=== PATIENT | male | born 1980 | race Caucasian/White ===

== ENCOUNTER 2016-07-04 22:13 | Emergency (ER) | payer MEDICAID, OTHER ==
[2016-07-04 22:26] VITALS: RESP 16; TEMP 98.6; O2SAT 95
--- NOTE | 2016-07-04 23:13 | EDPHY ---
H & P Stated Complaint: Umbilical Surgical site-[facility]-oother complaint. Time Seen by Provider: 07/04/16 23:12 HPI/ROS: CHIEF COMPLAINT: surgical wound check HISTORY OF PRESENT ILLNESS: 36-year-old male presents emergency department for a wound check from his umbilical hernia surgery done [address] [facility]. Patient reports redness. He denies pain, no fevers or chills, no nausea or vomiting. Source: Patient Exam Limitations: No limitations - Personal History Current Tetanus/Diphtheria Vaccine: Unsure Current Tetanus Diphtheria and Acellular Pertussis (TDAP): Unsure - Medical/Surgical History Hx Asthma: No Hx Chronic Respiratory Disease: No Hx Diabetes: No Hx Cardiac Disease: No Hx Renal Disease: No Hx Cirrhosis: No Hx Alcoholism: Yes Hx HIV/AIDS: No Hx Splenectomy or Spleen Trauma: No Other PMH: bipolar. Umbilical hernia Jun 2016 - Social History Smoking Status: Heavy smoker - Physical Exam Exam: GEN: Awake, alert, oriented, no acute distress RESP: nl resp effort MSK: Normal appearing SKIN: 3 cm surgical wound healing well, no drainage, left sided incision with small amount of erythema with swelling with clear suture poking out, no surrounding erythema Constitutional: Initial Vital Signs Temperature (C) 37.0 C 07/04/16 22:19 Heart Rate 95 07/04/16 22:19 Respiratory Rate 16 07/04/16 22:19 O2 Sat (%) 95 07/04/16 22:19 O2 Delivery Mode Room Air Allergies/Adverse Reactions: No Known Allergies Allergy (Verified 07/04/16 22:24) Home Medications: Medication Instructions Recorded Maliritu 07/04/16 Medical Decision Making ED Course/Re-evaluation: Suture removed from left side of incision without difficulty, no drainage. Departure - Departure Disposition: Home, Routine, Self-Care Clinical Impression: Visit for wound check Retained suture Qualifiers: Encounter type: initial encounter Qualifier Code: (T81.89XA) Other complications of procedures, not elsewhere classified, initial encounter Condition: Good Instructions: Acute Wound Care (ED) Additional Instructions: Follow-up with your surgeon as scheduled this week, return to the emergency department for increased redness, swelling, drainage, fevers or chills. Referrals: Gavin Magallon DO [Primary Care Provider] - As per Instructions
[2016-07-04 23:31] VITALS: BP 130/75; PULSE 88
== END 2016-07-05 00:03 | disposition home or self-care (01) ==
DX: T81.89XA Other complications of procedures, not elsewhere classified, initial encounter (principal); F17.200 Nicotine dependence, unspecified, uncomplicated; Y82.8 Other medical devices associated with adverse incidents

== ENCOUNTER 2016-07-23 16:30 | Emergency (ER) | payer MEDICAID ==
[2016-07-23 16:51] VITALS: BP 129/100; PULSE 88; RESP 16; TEMP 97.7; O2SAT 98
== END 2016-07-23 18:35 | disposition left against medical advice (07) ==
DX: Z53.21 Procedure and treatment not carried out due to patient leaving prior to being seen by health care provider (principal)

== ENCOUNTER 2016-07-25 14:19 | Emergency (ER) | payer MEDICAID ==
[2016-07-25 15:36] VITALS: BP 153/90; PULSE 79; RESP 18; TEMP 97.2; O2SAT 97
[2016-07-25 16:04] LABS: % IMMATURE GRANULYOCYTES 0.3 % (0.0-1.1); ABSOLUTE IMMATURE GRANULOCYTES 0.03 10^3/uL (0.00-0.10); ADD DIFF? NO; ADD MORPH? NO; ADD SCAN? NO; ATYPICAL LYMPHOCYTE FLAG 50 (0-99); FRAGMENT RBC FLAG 0 (0-99); HEMATOCRIT 44.8 % (40.0-51.0); HEMOGLOBIN 15.5 g/dL (13.7-17.5); LEFT SHIFT FLG 0 (0-99); LIPEMIA HEMOLYSIS FLAG 90 (0-99); MEAN CELL HEMOGLOBIN 30.3 pg (27.9-34.1); MEAN CELL HEMOGLOBIN CONCENTR. 34.6 g/dL (32.4-36.7); MEAN CELL VOLUME 87.7 fL (81.5-99.8); MEAN PLATELET VOLUME 8.7 fL (8.7-11.7); PLATELET CLUMPS FLAG 0 (0-99); PLATELET COUNT 351 10^3/uL (150-400); RED BLOOD CELL COUNT 5.11 10^6/uL (4.40-6.38); RED CELL DISTRIBUTION WIDTH 12.6 % (11.5-15.2)
--- NOTE | 2016-07-25 16:08 | EDPHY ---
H & P Time Seen by Provider: 07/25/16 15:57 HPI/ROS: CHIEF COMPLAINT: Anxiety. HISTORY OF PRESENT ILLNESS: This is a 36-year-old homeless male with a history of anxiety and bipolar disorder who presents with anxiety. He reports that he has been anxious because his "small intestine was thumping against my abdominal wall" a month after a hernia repair. He states that he takes Abilify but [place] it in the river and needs a new anxiety medication prescription as his psychiatrist will not give him one. No suicidal or homicidal ideation. He denies chest pain, shortness of breath, or other complaints at this time. REVIEW OF SYSTEMS: A complete 10-point review of systems was performed and is negative except for those items mentioned in the HPI. Past Medical/Surgical History: Bipolar disorder, anxiety. Social History: Homeless, smoker. Smoking Status: Heavy smoker Physical Exam: General Appearance: Alert, no distress Eyes: Pupils equal and round, no conjunctival pallor or injection ENT, Mouth: Mucous membranes moist Neck: Normal inspection Respiratory: Lungs are clear to auscultation Cardiovascular: Regular rate and rhythm Gastrointestinal: Abdomen is soft and non- tender Neurological: A&O, nonfocal, normal gait Skin: Warm and dry, no rash Extremities: Nontender, no pedal edema Psychiatric: Mood and affect normal Constitutional: Initial Vital Signs Temperature (C) 36.2 C 07/25/16 15:34 Heart Rate 79 07/25/16 15:34 Respiratory Rate 18 07/25/16 15:34 Blood Pressure 153/90 H 07/25/16 15:34 O2 Sat (%) 97 07/25/16 15:34 O2 Delivery Mode Room Air Allergies/Adverse Reactions: No Known Allergies Allergy (Verified 07/04/16 22:24) Home Medications: Medication Instructions Recorded 07/04/16 Medical Decision Making ED Course/Re-evaluation: Patient left before full assessment could be completed. No medications given. He did not meet criteria to be placed on an M1 hold. - Data Points Laboratory Results: Laboratory Results 07/25/16 15:50 07/25/16 15:50 Departure - Departure Disposition: Home, Routine, Self-Care Clinical Impression: Anxiety Condition: Good Instructions: Anxiety (ED) Additional Instructions: Follow up with your psychiatrist or primary care provider tomorrow for reevaluation. Return to the emergency department for any serious worsening of condition. Referrals: [facility] [Outside] - As per Instructions Report Scribed for: Beatrice Hernandez Report Scribed by: Pablo Reeder Date of Report: 07/25/16 Time of Report: 16:14 Physician Review and Approval Statement: 07/25/16 16:14 Portions of this note were transcribed by a medical secretary. I personally performed a history, physical exam, medical decision making, and confirmed accuracy of information the transcribed note.
[2016-07-25 16:20] LABS: ANION GAP 13 mEq/L (8-16); CALCIUM 9.6 mg/dL (8.5-10.4); CARBON DIOXIDE 21 mEq/l (22-31); CHLORIDE 103 mEq/L (97-110); CREATININE 0.7 mg/dL (0.7-1.3); ETHANOL SERUM < 10 mg/dL (0-10); GLOMERULAR FILTRATION RATE > 60; GLUCOSE 131 mg/dL (70-100); POTASSIUM 4.2 mEq/L (3.5-5.2); SODIUM 137 mEq/L (134-144)
== END 2016-07-25 16:30 | disposition home or self-care (01) ==
DX: F41.9 Anxiety disorder, unspecified (principal); F17.200 Nicotine dependence, unspecified, uncomplicated
CPT/HCPCS: 80305; G0480

== ENCOUNTER 2016-07-28 22:01 | Emergency (ER) | payer MEDICAID ==
[2016-07-28 22:10] VITALS: BP 162/79; PULSE 76; RESP 16; TEMP 97.9; O2SAT 95
--- NOTE | 2016-07-28 22:41 | EDPHY ---
H & P Stated Complaint: "I need a script for my Abilify and some Valium" Source: Patient Exam Limitations: No limitations - Personal History Current Tetanus Diphtheria and Acellular Pertussis (TDAP): Unsure - Medical/Surgical History Hx Asthma: No Hx Chronic Respiratory Disease: No Hx Diabetes: No Hx Cardiac Disease: No Hx Renal Disease: No Hx Cirrhosis: No Hx Alcoholism: Yes Hx HIV/AIDS: No Hx Splenectomy or Spleen Trauma: No Other PMH: bipolar. Umbilical hernia Jun 2016. ADHD. anxiety - Social History Smoking Status: Heavy smoker HPI/ROS: CHIEF COMPLAINT: Requesting medication for anxiety HISTORY OF PRESENT ILLNESS: patient reports that he has been very anxious lately and is asking for refill of anxiety medication, specifically Klonopin or Valium. He denies any suicidal ideation or homicidal ideation. He does not want to harm himself or anyone else. He wants to get better and is asking for medication for this. He is also asking for more Abilify, but has some in hand. No fever chills no chest pain or shortness of breath no cough. No abdominal complaints. No urinary complaints. Anxiety is worse by multiple triggers and improved only with those medications per him. No other associated complaints or modifying factors. REVIEW OF SYSTEMS: Ten systems reviewed and are negative unless otherwise noted in the HPI EXAMINATION General Appearance: Alert, no distress , unkempt Head: normocephalic, atraumatic Eyes: Pupils equal and round, no conjunctival pallor or injection. EOMs intact. ENT, Mouth: Mucous membranes moist Neck: Normal inspection, supple, non-tender Respiratory: Lungs are clear to auscultation Cardiovascular: Regular rate and rhythm . No murmur. Gastrointestinal: Abdomen is soft and nontender Neurological: A&O, nonfocal, normal, steady gait Skin: Warm and dry, no rash Extremities: Nontender, no pedal edema Psychiatric: anxious but conversing appropriately. No suicidal ideation. No homicidal ideation. DIFFERENTIAL DIAGNOSES: Including but not limited to Anxiety disorder, acute anxiety reaction, acute stress reaction, personality disorder, mood disorder MDM: 10:40 p.m. history of ongoing anxiety with request for anxiety medication. He denies any suicidal ideation. He denies any homicidal ideation. He says that he is on his way to [place] to seek help as he has lost his psychiatrist recently. He is asking only for anxiety medication once no workup. He is cooperative, non combative and conversing appropriately. I informed him I am uncomfortable prescribing Valium her Klonopin for him given his scenario but I will prescribe a non addictive medication for his anxiety reaction. He is comfortable with this plan and happy with that and will be discharged home stable condition. SUPERVISION: This patient was independently evaluated without the aide of supervising physician. (Galindo Hyman) Constitutional: Initial Vital Signs Temperature (C) 36.6 C 07/28/16 22:06 Heart Rate 76 07/28/16 22:06 Respiratory Rate 16 07/28/16 22:06 Blood Pressure 162/79 H 07/28/16 22:06 O2 Sat (%) 95 07/28/16 22:06 O2 Delivery Mode Room Air Allergies/Adverse Reactions: No Known Allergies Allergy (Verified 07/28/16 22:06) Home Medications: Medication Instructions Recorded Abilify 07/04/16 hydrOXYzine HCL [Hydroxyzine HCl] 50 mg PO Q6-8PRN PRN #20 tablet 07/28/16 Medical Decision Making Other Provider: PHYSICIAN DOCUMENTATION: The patient was evaluated and managed by the Physician [employer]. My co- signature indicates that I have reviewed this chart and I agree with the findings and plan of care as documented. I am the secondary supervising physician. (Jahaira Melo) Departure - Departure Disposition: Home, Routine, Self-Care Clinical Impression: Anxiety disorder Condition: Good Instructions: Generalized Anxiety Disorder (ED) Referrals: [facility] [Outside] - As per Instructions Gavin Magallon DO [Primary Care Provider] - As per Instructions Prescriptions: hydrOXYzine HCL [Hydroxyzine HCl] 50 mg PO Q6-8PRN PRN #20 tablet PRN Reason: Anxiety
== END 2016-07-28 22:50 | disposition home or self-care (01) ==
DX: F41.9 Anxiety disorder, unspecified (principal); F17.200 Nicotine dependence, unspecified, uncomplicated

== ENCOUNTER 2016-08-03 00:25 | Emergency (ER) | payer MEDICAID ==
[2016-08-03 00:32] VITALS: BP 122/64; PULSE 63; RESP 16; TEMP 97.3; O2SAT 94
--- NOTE | 2016-08-03 00:42 | EDPHY ---
HPI/HX/ROS/PE/MDM Narrative: Chief complaint: Hungry, exhausted, and anxiety HPI: 36-year-old homeless male coming in asking for something the eat that he is hungry. Patient also states that he is having an anxiety attack in will need some Valium to treat this. Patient denies being suicidal or homicidal. Denies any abdominal pain. No fevers or chills. When I explained to the patient that this is an emergency department and that I am happy to treat any medical emergencies that he has patient became insulting and profane. ROS: 10 point Review of Systems is negative except as noted in the HPI. Physical exam: Gen: Awake, Alert, No Distress HEENT: Nose: no rhinorrhea Eyes: PERRLA, EOMI Mouth: Moist mucosa Neck: Supple, no JVD Chest: No distress Heart: Well perfused Abd: Normal inspection Ext: no edema, Skin: no rash Neuro: CN II-XII intact, Sensation grossly intact, Strength 5/5 in bilateral upper and lower extremities ED Course: 36-year-old male presenting emergency department complaining of being hungry and asking for something the eat in asking for benzos for his anxiety. Patient is calm and initially relax. When I explained to him that I do not see an indication for and benzodiazepines at this time and that this is an emergency department in he has not had appear to have an acute emergent medical condition the patient became angry and insulting and profane. Patient demanded water. Became increasingly aggressive and was then escorted off the premises by security. There is no evidence of an acute medical problem. Patient's complaint was that he was hungry and wanted benzodiazepines. He ambulated out of the department without any difficulties. General Time Seen by Provider: 08/03/16 00:33 Initial Vital Signs: Initial Vital Signs Temperature (C) 36.3 C 08/03/16 00:28 Heart Rate 63 08/03/16 00:28 Respiratory Rate 16 08/03/16 00:28 Blood Pressure 122/64 H 08/03/16 00:28 O2 Sat (%) 94 08/03/16 00:28 O2 Delivery Mode Room Air Allergies/Adverse Reactions: No Known Allergies Allergy (Verified 07/28/16 22:06) Home Medications: Medication Instructions Recorded Abilify 07/04/16 hydrOXYzine HCL [Hydroxyzine HCl] 50 mg PO Q6-8PRN PRN #20 tablet 07/28/16 Departure - Departure Disposition: Home, Routine, Self-Care Clinical Impression: Hungry Condition: Good
== END 2016-08-03 00:43 | disposition home or self-care (01) ==
DX: T73.0XXA Starvation, initial encounter (principal)

== ENCOUNTER 2018-06-01 22:32 | Inpatient (IN) | payer OTHER ==
--- NOTE | 2018-06-01 23:00 | ASMTLCPROG ---
Notes Note: Notes: [facility] Packet, M1 Hold, WIC Med Clear, [facility] Eval has been fax attached. Contacting [employer] for auth. Date Signed: 06/01/2018 10:58 PM Electronically Signed By:Antonio Bentley
[2018-06-01] MEDS ORDERED: LORazepam 0.5 MG TAB PO PRN (23:25)
[2018-06-01] MEDS ORDERED: MAGNESIUM HYDROXIDE 30 ML UDCUP PO PRN (23:25)
[2018-06-01] MEDS ORDERED: ACETAMINOPHEN 325 MG TAB PO PRN (23:26)
[2018-06-01] MEDS ORDERED: MAG HYDROX/AL HYDROX/SIMETH 30 ML UDCUP PO PRN (23:26)
[2018-06-01] MEDS ORDERED: OLANZapine DISINTEGR 5 MG TAB PO PRN (23:27)
--- NOTE | 2018-06-01 23:29 | ASMTLCPROG ---
Notes Note: Notes: Completed Auth Call and Email [id number] Enrique Hall BD- 1980 Bipolar I Disorder, with Psychotic Features, Mixed, with psychotic features (F31.64) Admitting Darling Mcduffie MD Involuntary Admission M1 Hold. Primary [employer] [id number] [facility] - [id number] Human Auth # [id number] Approved for 4 days Review date Jun.04. Review person: Malka HerronClaudia [phone] x [phone] Date Signed: 06/01/2018 11:28 PM Electronically Signed By:Antonio Bentley
[2018-06-02] MEDS: NICOTINE POLACRILEX 2 MG GUM B PRN (09:30)
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
--- NOTE | 2018-06-02 11:56 | ASMTCMCOM ---
CM Note CM Note Notes: Pt. and CC completed MTP and placed in pt's chart. Pt. stated he has no current legal issues, but pt's reports indicate he has court on 06/07/18 for "'probation ramification' for DUI related charges". Pt. denied all substance use. Pt. denied SI, HI, AVH and paranoia. Pt. presents as alert, slightly elevated, good eye contact, and cooperative. Staff report pt. sleeping 7 hours and being medication compliant. Date Signed: 06/02/2018 11:56 AM Electronically Signed By:Haylee Hoffmann
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
[2018-06-02] MEDS: DIVALPROEX ER 500 MG TAB PO SCH (20:18)
[2018-06-03] MEDS ORDERED: NICOTINE POLACRILEX 2 MG GUM B ONE (02:23)
[2018-06-03] MEDS: NICOTINE POLACRILEX 2 MG GUM B PRN ×10 (02:25→19:25)
[2018-06-03] MEDS: DIVALPROEX ER 500 MG TAB PO SCH ×2 (07:26→19:24)
--- NOTE | 2018-06-03 12:01 | SOAPPROG ---
SOAP Progress Note Assessment/Plan: Assessment: 38yo CM with BMD, MRE manic and THC use d/o (hx heavy use prior to last admission) recently readmitted due to concerning behaviors at his residence also becoming immediately med noncompliant with po meds after d/c, giving various reasons but reporting motivation to resume. 06/03/18 12:01 per staff, slept 3.5hr last night, but most of the day yesterday. attending groups but irritable and irritated b/c here. wanting cigarettes at least patch. was irritable with cc this am, and seemed to be sarcastic with statement about how much he "loved" taking the "big pills". (depakote) asking to shave. expresses concerns about upcoming court date 06/07 (not wanting to miss) and housing b/c not wanting to return to [facility] where he rents a room despite paid thru Dec. states RM is "psycho". MSE: cooperative, casually dressed, nml psychom activity with no tremor/ataxia, good e/c, nml speech, states mood is frustrated with rehospitalization expressing need to find alternate living situation and expressing happiness with ( incongruent/flat affect) about being back on his medications (vpa) which he reports help him altho not able to state exactly how. affect noted also mildly anxious about dispo planning (wants to change housing, figure out how to get to court which is not local). denied si/hi or any ah/vh. not appearing with any RIS. no overt delusions expressed. i/j both limited. PLAN: -restarted depakote 1000mg bid. denied s/e. -invega sustenna due 06/23 or sooner. -may need help with housing alternatives. disability check for Dec soon avail. -m-1 exp 06/04 around 6pm. -has court 06/07, not local. pt not sure how he will get there, but does not want to miss Objective: Vital Signs Temp Pulse Resp BP Pulse Ox 36.6 C 70 16 134/89 H 99 06/03/18 06:00 06/03/18 06:00 06/03/18 06:00 06/03/18 06:00 06/03/18 06:00 Medications Generic Name Dose Route Start Last Admin Trade Name Freq PRN Reason Stop Dose Admin Divalproex Sodium 1,000 mg 06/02/18 21:00 06/03/18 07:26 Depakote Er PO 11/29/18 20:59 1,000 mg BID EVA Hydroxyzine HCl 25 mg 06/02/18 19:10 Hydroxyzine Hcl PO 11/29/18 19:09 Q6HRS PRN Anxiety Lorazepam 0.5 - 1 mg 06/01/18 23:25 Ativan PO 11/28/18 23:24 Q4HRS PRN Anxiety, Able to Take PO Olanzapine 5 - 10 mg 06/01/18 23:27 Zyprexa Zydis PO 11/28/18 23:26 Q6HRS PRN Psychosis - Time Spent With Patient Time Spent With Patient: 15min - Pending Discharge Pending Discharge Within 24 Hours: No Pending Discharge Within 48 Hours: No ICD10 Worksheet Patient Problems: Problems Problem Status Onset Cannabis use disorder, severe, dependence Acute Methamphetamine abuse Acute Schizoaffective disorder, bipolar type Chronic
[2018-06-03] MEDS: NICOTINE 14 MG/24 HR PATCH TD SCH (12:58)
[2018-06-03] MEDS: hydrOXYzine HCL 25 MG TAB PO PRN (20:46)
[2018-06-04] MEDS ORDERED: NICOTINE POLACRILEX 2 MG GUM B ONE (03:11)
[2018-06-04] MEDS: hydrOXYzine HCL 25 MG TAB PO PRN (03:12)
[2018-06-04] MEDS: NICOTINE POLACRILEX 2 MG GUM B PRN ×4 (03:12→15:30)
--- NOTE | 2018-06-04 07:14 | SOAPPROG ---
SOAP Progress Note Assessment/Plan: Assessment: Schizoaffective, bipolar type complicated by cannabis abuse and medication non- adherence; current rick. Substance-induced mood disorder. Medical treatment non-adherence. Slight improvement noted. (see subjective/objective note). Patient is not safe to discharge at this time as patient continues to exhibit signs of rick, and express rick symptoms. Patient requires continued inpatient care because of current acute rick, and requires inpatient level of care to stabilize in order to no longer be gravely disabled due to mental illness. Due to patients current, acute state he is unable to communicate his basic needs and requires direction and prompting from staff to perform ADLs. Patient exhibits inability to provide for himself, neglecting self-care, withdrawn from social interactions, currently shows inability to maintain any appropriate aspect of personal responsibility as an adult, patient becomes agitated and irritable when asked simple and appropriate questions, and could benefit from referral to substance abuse treatment prior to discharge. To improve long-term adherence and reduce risk of decompensation, patient could benefit from therapeutic level of VPA with level on 06/06/18 with potential discharge 06/06/18 if stable and safe discharge plan. Patient could benefit from continued inpatient hospitalization for crisis stabilization, safety, and medication evaluation. Plan: 1. Psychotropic medications: After reviewing options, risks, and benefits patient agrees to continue current medications and change Depakote ER to HS at current dose of 2,000 mg and Invega 3 mg po QD for acute stabilization. No other medication changes at this time as more time is needed to determine ongoing tolerability and efficacy. Plan is to continue to observe patient for response and side effects from medications, and ongoing monitoring and evaluation. 2. Review with patient informed consent and recommendations for psychotropic medication treatment listed below 3. Labs: VPA level prior to discharge 4. Therapy: continue milieu and group therapy 5. Further investigation including gathering information from patients relatives and review of past case records to inform treatment plan. 6. Safety/Wellness plan and follow-up outpatient appointments to be established prior to discharge. Next steps are for patient to meet with respiratory care program director to plan a safe discharge plan and establish outpatient services for ongoing treatment. 7. Confer with inpatient treatment team regarding treatment plan. 8. Psychosocial stressors addressed through medical case manager 9. Legal status: M1; agrees to voluntary 10. Consider discharge Monday if patient is in stable condition, safe, and has a safe discharge plan. 11. Substance abuse interventions: methamphetamine and cannabis 12. Treatment team meeting today to discuss treatment plan and goals for hospitalization. Review voluntary vs. STC for continued hospitalization. PSYCHOTROPIC MEDICATION TREATMENT INFORMED CONSENT and RECOMMENDATIONS: Review nature of condition, diagnosis, and prognosis. Review nature and purpose of psychotropic medication treatment. Review type of psychotropic medications being ordered. Review risk and benefits of psychotropic medication treatment. Review probable length of time patient will need to take medications. Review risk and benefits of not undergoing psychotropic medication treatment. Review alternative treatments to psychotropic medications. Review psychotropic medications contraindications, drug-drug interactions, side effects, and importance of reporting any side effects to a psychiatric provider or nurse during inpatient hospitalization, and upon discharge to patients psychiatric outpatient provider, primary care provider, or other health personal care aid. Review importance of asking a nurse, psychiatric provider, or primary care provider any questions or problems concerning the psychotropic medications. Verify patient understands the information that has been provided, and understands, accepts, and agrees to psychotropic medications. Review patients safety plan and importance of patient to report to staff while hospitalized if patient is ever a danger to self/others, or unable to care for self, and upon discharge, the importance for patient to contact [facility] or [facility], or go to the nearest emergency room, if patient is ever a danger to self/others, or unable to care for self. Recommend that upon discharge patient establish medication management treatment with a psychiatric provider, establishes routine therapy appointments, and follow-up with primary care provider. Verify patient understands and agrees to these recommendations. 06/04/18 07:10 Subjective: Following up with patient for evaluation of rick, psychosis, and safety. Patient reports, "After I discharged last week, I did not fill Depakote prescription, wasnt taking it, I have it now though so have that part straightened out." Patient expresses the following psychiatric symptoms none and reports, "Feeling okay, just needed some sleep." Patient reports taking medications as prescribed, does not report undesirable side effects from the medications, and agrees to continue current medications. Patient agrees to change Depakote ER from 1,000 mg BID to 2,000 mg po QHS. Patient agrees to Invega 3 mg po QD for acute stabilization. Patient describes getting 6 hours of sleep, and reports he feels well rested. Patient state he will not agree to continue to stay hospitalized on a voluntary basis. Patient states, "Do whatever you needed to do, but I need to leave today, I don't want to stay here. " Objective: Vital Signs Temp Pulse Resp BP Pulse Ox 36.8 C 78 16 126/61 H 97 06/04/18 06:00 06/04/18 06:00 06/04/18 06:00 06/04/18 06:00 06/04/18 06:00 NURSING REPORT: Consulted with nursing for update on patients progress in treatment. Nurses report patient is not engaged in treatment, is not attending groups, slept 5 hours, expresses the following psychiatric symptoms: agitation, severe anxiety; exhibits the following psychiatric symptoms: tangential, hyperactive, irritable; is eating all meals, withdrawn to room and from interaction with staff and other patients; patient requires constant direction and prompting from staff to attend to ADLs; is agreeable to medications, reports no side effects, no s/s of EPS/akathisia, and denies SI/HI, denies A/V hallucinations, and denies delusions. MSE: The patient is a well-nourished male looking stated chronological age. Attire is appropriate dress is casual. Grooming status is appropriate. Ambulation is independent. Gait is normal and coordinated. Posture is abnormal and tense. Eye contact is inappropriate and staring. Motor activity is appropriate with purposeful, organized, coordinated movements; with no involuntary movements. Attitude is uncooperative and defensive. Patient appears distracted and does not relate well to this interviewer. Language production is spontaneous. Rate is pressured. Latency of response is shortened with irritable tone. Articulation is clear. Patient reports mood as great with expansive and inappropriate affect. Patients thought process is non- linear and illogical, with loose associations, tangential thought. Patient does not report suicidal/homicidal thoughts, ideas, or plans. Patient denies auditory, visual hallucinations. Patient does not report delusions. Patient does not appear to be attending to internal stimuli. Patients attention and concentration are adequate. Patient is oriented to person, place, time. Patients insight is poor. Patients judgment is poor. SUBSTANCE ABUSE BRIEF INTERVENTION: Brief intervention regarding the risks of methamphetamine and cannabis abuse is provided to patient with goal to reduce the risk of harm that could result from the continued use of methamphetamine and cannabis, with the general aim to investigate the problem, raise awareness of problem, develop a solution with the patient, recommend a specific change or activity, and motivate the patient toward change. Assess substance abuse behavior and give supportive advice about harm reduction, recommend a reduction in hazardous/at-risk consumption patterns, and facilitate referrals for additional specialized treatment with healthcare financial analyst. Intermediate goal is for the patient to quit and engage in outpatient substance abuse treatment. Intervention focus on intermediate goals to allow for more immediate success in the treatment process to keep the patient motivated. Review following with patient: Methamphetamine use risks: Short-term: insomnia, irritability, aggressive behavior, hallucinations, delusions, intellectual deficits, anxiety, depression, convulsions, damage to blood vessels in the brain causing strokes, high fevers, collapse of the circulatory system. Long-term: damage to nerve pathways, maybe irreversibly; overstimulation to dopamine impairing dopamine transport and reducing efficiency of dopamine receptors, the reward system becomes worn out, leading to inability to experience pleasure for years. Cannabis use risks: Short-term use: impaired short-term memory, impaired motor coordination, altered judgement, in high doses paranoia and psychosis. Long- term use addiction, diminished life satisfaction and achievement, symptoms of chronic bronchitis, and increased risk of chronic psychosis disorders if predisposition to such disorders. In withdrawal anger, aggression irritability , anxiety and nervousness, decreased appetite or weight loss, restlessness, and sleep difficulties with strange dreams. OUTPATIENT SUBSTANCE ABUSE TREATMENT: Patient referred to outpatient provider and treatment for continued treatment related to substance abuse. PATIENTS RESPONSE TO INTERVENTION: "Don't use it. I took your advice and stopped using it." - Time Spent With Patient Time Spent With Patient: 15 minutes, met with patient individually. - Pending Discharge Pending Discharge Within 24 Hours: No Pending Discharge Within 48 Hours: Yes Pending Discharge Date: 06/06/18 Pending Discharge Time: 11:00 ICD10 Worksheet Patient Problems: Problems Problem Status Onset Cannabis use disorder, severe, dependence Acute Methamphetamine abuse Acute Schizoaffective disorder, bipolar type Chronic
[2018-06-04] MEDS ORDERED: DIPHENHYDRAMINE CREAM TP PRN (07:40)
[2018-06-04] MEDS: NICOTINE 14 MG/24 HR PATCH TD SCH (08:34)
[2018-06-04] MEDS: PALIPERIDONE 3 MG TAB.ER PO SCH (08:34)
--- NOTE | 2018-06-04 08:50 | ASMTCMCOM ---
CM Note CM Note Notes: CC checked in with ct. He presented as irritable and was short with this CC. He reported that he would like to be discharged today as he is being evicted from his place. He said that he has a court date on 06/07 and that his [facility] appointment is on 06/14. Date Signed: 06/04/2018 08:49 AM Electronically Signed By:Irina Arevalo
[2018-06-04] MEDS: diphenhydrAMINE 25 MG CAP PO PRN (15:30)
[2018-06-04] MEDS ORDERED: DIVALPROEX ER 500 MG TAB PO SCH (21:00)
[2018-06-05] MEDS: diphenhydrAMINE 25 MG CAP PO PRN ×2 (01:15→10:23)
[2018-06-05] MEDS: NICOTINE POLACRILEX 2 MG GUM B PRN ×7 (01:15→08:58)
[2018-06-05 06:24] VITALS: BP 136/77
[2018-06-05] MEDS: NICOTINE 14 MG/24 HR PATCH TD SCH (08:34)
[2018-06-05] MEDS: PALIPERIDONE 3 MG TAB.ER PO SCH (08:34)
--- NOTE | 2018-06-05 18:22 | BDS ---
REASON FOR ADMISSION: From the psychiatric assessment and history dated 2017, patient reported that he forgot to picker feeder his medications after being discharged from this hospital the week prior. The patient reported he was unable to fill his Depakote prescription. Patient was recently admitted on , and discharged on 05/27/2018. Patient reported after discharging, he had trouble filling his medications due to having his insurance changed, which caused a problem with the pharmacy. The patient was brought to the walk-in clinic by [place] [employer] due to complaints from patient's roommate that he was paranoid after locking roommate out of his trailer. Patient reported that his roommate called the supply chain planner due to patient burning pork in the oven. Patient's toxicology screen on 06/03/2018, at time of admission was non-negative for THC with a level of 789 ng/mL. Patient did report using cannabis prior to his admission. Patient was admitted involuntarily on an M1 hold due to being gravely disabled due to a mental illness. Patient was admitted for safety, crisis stabilization, and medication management. ADMITTING DIAGNOSES: 1. Schizoaffective disorder, bipolar type. 2. Cannabis use disorder, severe. 3. Nonadherence to medical treatment. 4. Substance-induced mood disorder. 5. Methamphetamine abuse. 6. Nicotine dependence. ADMISSION PHYSICAL EXAM: Patient was seen for Internal Medicine consultation on 05/19/2018, for medical clearance for inpatient psychiatric hospitalization. Patient was medically cleared for inpatient psychiatric hospitalization and treatment. For further details, please refer to consultation note dated 2017. ADMISSION LABS: CBC from 05/19/2018, was within normal limits, except white blood cells were elevated at 10.53, monocytes were elevated at 13.1, absolute monocytes were elevated at 1.38, and absolute eosinophils were elevated at 0.41. Absolute basophils were elevated at 0.12. BMP from 05/19/2018, within normal limits, except carbon dioxide was low at 19. Hemoglobin A1c was 5.1 and within normal limits. Estimated average glucose was within normal limits at 100. Calcium within normal limits at 9.5. Liver function from 05/19/2018, within normal limits, except AST was elevated at 79. Lipid panel within normal limits, except cholesterol was low at 126. LDL cholesterol calculated was low at 58. Non-HDL cholesterol was low at 67. LDL/HDL ratio was low at 0.98. TSH was within normal limits at 1.820. Toxicology screen from 05/19/2018, was non- negative for THC and was negative for all other substances tested. On 2017, patient's THC result was 789 ng/mL. Valproic acid from 05/27/2018, was 84.0 at current Depakote ER dose of 2000 mg p.o. q.h.s. MAJOR PROCEDURES OR TESTS: None. HOSPITAL COURSE: The most prominent symptoms and behaviors while the patient was here were decreased need for sleep. The patient was sleeping 4-5 hours per night after admission. The patient was, at times, hyperverbal, hyperactive, intrusive with staff, irritable and agitated. The patient appeared to be disorganized at times, illogical, nonlinear, with no insight to reason for hospitalization. Treatment modalities utilized were milieu and group therapy. Invega 3 mg p.o. daily was started to target mood and psychosis symptoms, was tolerated with no report of side effects and with good response. Depakote ER 2000 mg p.o. q.h.s. was continued to target mood symptoms, was tolerated with no report of side effects and with good response. The patient has improved considerably, with no signs of psychiatric symptoms and no psychiatric symptoms expressed at time of discharge. Patient reports he has improved since admission , states to be in stable condition, feels safe to discharge, and he contracts for safety. Patient's response to treatment was good. There were no adverse or unexpected results of treatment. The patient was safe throughout his stay, active in treatment, engaged in groups, and was appropriate with staff and other patients. The patient met with the treatment team prior to discharge to assess readiness to discharge and review discharge plan. The treatment team consensus is the patient is in stable condition, has a safe discharge plan, and is ready to discharge today. CONDITION ON DISCHARGE: Patient is in stable condition and is no longer a danger to self or others, and is not gravely disabled due to mental illness. Patient is no longer in need of inpatient level of care, and can be safely and effectively treated within the community. The patients level of risk at time of discharge is low. MSE: The patient is casually dressed and with good hygiene , and looks stated age. Patient is sitting, posture is upright, and position is relaxed. Patient appears awake, alert, and responds appropriately and reasonably during interview. Patient is engaged, relates well to interviewer, and emotional facial expression is appropriate to situation and changes appropriately with topic. Patient is cooperative, makes comfortable eye contact , and movements are voluntary, deliberate, coordinated, and smooth and even with no inappropriate movements. Patient makes laryngeal sounds effortlessly and shares conversation appropriately; pace of conversation is appropriate, and stream of talking is fluent; articulation is clear and understandable; word choice is effortless and appropriate for education level; completes sentences, occasionally pausing to think; rate and volume are appropriate for interview and setting. Patient reports mood as euthymic. Patients affect is stable with full variable range, congruent with mood, and appropriate to speech and circumstances. Patient has linear and logical thinking, with no loose associations, tangential thought, thought blocking, concrete thinking, or any other signs of formal thought disorder. Patient denies suicidal and homicidal ideation, and denies hallucinations and delusions. Patient appears to be a reliable historian with sound judgement and good insight into current condition. Patient has no apparent dysfunction in recent or remote memory noted , and no evidence of gross cognitive dysfunction noted at any point during the interview. DISCHARGE DIAGNOSES: 1. Schizoaffective disorder, bipolar type. 2. Cannabis use disorder, severe. 3. Nonadherence to medical treatment. 4. Substance-induced mood disorder. 5. Methamphetamine abuse. 6. Nicotine dependence. CURRENT MEDICATIONS: After reviewing options, risks, and benefits with the patient, the patient agrees to continue: 1. Depakote ER 2000 mg p.o. q.h.s. 2. Invega Sustenna with maintenance dose to be determined by outpatient provider. Maintenance dose for Invega Sustenna is due Saturday, June 23, 2018. 3. Nicotine TD 21 mg q.24 hours. The patient reports he has prescriptions for the above medications. Reports he has paid for the Depakote ER prescription, and it is waiting for him to picker feeder at the pharmacy. The prescriptions and medications are reviewed with the patient at time of discharge to ensure accuracy and patient understanding. DISPOSITION: Patient left hospital independently and voluntarily with plans to follow up with [facility]. FOLLOWUP: costume shop coordinator reports the appropriate outpatient follow-up services have been established and outpatient appointments have been scheduled. The patient received written instructions with times and dates of outpatient follow-up appointments. The following follow-up recommendations were provided to the patient at discharge: Continue psychotropic medications as prescribed and attend appointments as scheduled. Report any side effects to a psychiatric outpatient provider, a primary care provider, or other health day care supervisor. Address any questions or problems concerning the psychotropic medications with a psychiatric outpatient provider, a primary care provider, or other health day care supervisor. Contact [facility] or [facility], or go to the nearest emergency room, if you are ever a danger to yourself/others, or unable to care for yourself. As soon as possible, establish a routine medication management treatment with a psychiatric provider, establish routine therapy appointments, and follow-up with a primary care provider. SUBSTANCE ABUSE BRIEF INTERVENTION: Brief intervention regarding the risks of methamphetamine, cannabis, and nicotine abuse is provided to patient with goal to reduce the risk of harm that could result from the continued use of methamphetamine, cannabis, and nicotine with the general aim to investigate the problem, raise awareness of problem, develop a solution with the patient, recommend a specific change or activity, and motivate the patient toward change. Assess substance abuse behavior and give supportive advice about harm reduction, recommend a reduction in hazardous/at-risk consumption patterns, and facilitate referrals for additional specialized treatment with field care advocate. Intermediate goal is for the patient to quit and attend outpatient substance abuse treatment. Intervention focus on intermediate goals to allow for more immediate success in the treatment process to keep the patient motivated. Review following with patient: Cannabis use risks: Short- term use: impaired short-term memory, impaired motor coordination, altered judgement, in high doses paranoia and psychosis. Long-term use addiction, diminished life satisfaction and achievement, symptoms of chronic bronchitis, and increased risk of chronic psychosis disorders if predisposition to such disorders. In withdrawal anger, aggression irritability, anxiety and nervousness, decreased appetite or weight loss, restlessness, and sleep difficulties with strange dreams. Methamphetamine use risks: Short-term: insomnia, irritability, aggressive behavior, hallucinations, delusions, intellectual deficits, anxiety, depression, convulsions, damage to blood vessels in the brain causing strokes, high fevers, collapse of the circulatory system. Long-term: damage to nerve pathways, maybe irreversibly; overstimulation to dopamine impairing dopamine transport and reducing efficiency of dopamine receptors, the reward system becomes worn out, leading to inability to experience pleasure for years. Nicotine dependence: lung cancer , other cancers, heart and circulatory system problems, diabetes, eye problems, infertility and impotence, more prone to respiratory infections, weakened senses , teeth and gum disease, premature aging, second hand smoke. Withdrawal symptoms include strong cravings, anxiety, irritability, restlessness, difficulty concentrating, depressed mood, frustration, anger, increased hunger, insomnia, and constipation or diarrhea. OUTPATIENT SUBSTANCE ABUSE TREATMENT: Patient referred to outpatient provider and treatment for continued treatment related to substance abuse. LEGAL COURSE: The patient was admitted on an M1 hold for involuntary inpatient psychiatric hospitalization. Patient discharged today independently and voluntarily. ATTITUDE AT TIME OF DISCHARGE: The patients attitude was positive at time of discharge, and patient reports looking forward to discharging today. The patient reports he feels safe to discharge, is no longer a danger to himself or others, is in stable condition, and contracts for safety. Patient states he will continue medications as prescribed, and establish medication management treatment with an outpatient provider after discharge. Patient reports he understands the information that has been provided to him, and he understands, accepts, and agrees to psychotropic medications. Patient describes internal protective factors as the coping skills he has learned while hospitalized here, and he plans to continue to practice these coping skills after discharge. LABS AND RADIOLOGY STUDIES: There were no pending labs or studies at time of discharge. ADVANCE DIRECTIVES: There were no advance directives on file, and patient was full code during this hospitalization. The following psychotropic medication treatment informed consent and recommendations were provided to the patient at time of discharge. Patient reports he understands, accepts, and agrees to the information that has been provided. PSYCHOTROPIC MEDICATION TREATMENT INFORMED CONSENT and RECOMMENDATIONS: Review nature of condition, diagnosis, and prognosis. Review nature and purpose of psychotropic medication treatment. Review type of psychotropic medications being prescribed. Review risk and benefits of psychotropic medication treatment. Review probable length of time will need to take medications. Review risk and benefits of not undergoing psychotropic medication treatment. Review alternative treatments to psychotropic medications. Review psychotropic medications contraindications, side effects, and importance of reporting any side effects to a psychiatric provider, primary care provider, or other health day care supervisor. Review importance of asking a psychiatric provider or primary care provider any questions or problems concerning the psychotropic medications. Review safety plan and the importance to contact [facility] or [facility] , or go to the nearest emergency room, if ever a danger to yourself/others, or unable to care for yourself. Recommend upon discharge to establish routine medication management treatment with a psychiatric provider, establish routine therapy appointments, and follow-up with a primary care provider. Verify patient understands, accepts, and agrees to the information that has been provided. /[id number]
== END 2018-06-05 11:00 | disposition home or self-care (01) | DRG 885 ==
LOC: BBEH 23:02
PROVIDERS: ADMIT Psychiatry & Neurology Behavioral Neurology & Neuropsychiatry; ATTEND Psychiatry & Neurology Behavioral Neurology & Neuropsychiatry
DX: F25.0 Schizoaffective disorder, bipolar type (principal); T43.506A Underdosing of unspecified antipsychotics and neuroleptics, initial encounter; Z91.128 Patient's intentional underdosing of medication regimen for other reason; F12.959 Cannabis use, unspecified with psychotic disorder, unspecified; F15.959 Other stimulant use, unspecified with stimulant-induced psychotic disorder, unspecified; F17.200 Nicotine dependence, unspecified, uncomplicated
CPT/HCPCS: 80307; G0480